=== PATIENT | male | born 1950 | race Caucasian/White ===

== ENCOUNTER → 2017-06-12 | Outpatient (CLI) | payer BC, MEDICARE, OTHER ==
[~2017-06-12] MED LIST: ALLO300T2 PO; ASPI-110 PO; CARV25TA PO; CIAL5TAB PO; FLUT1SPR5 EACH NARE; HYDR25TA5 PO; POTA-163 PO
--- NOTE | 2017-06-12 11:16 | RADRPT ---
EXAM DATE/TIME: 06/12/2017 10:53 [place] COMPARISON: No previous studies available for comparison. INDICATIONS : Evaluate for pneumonia, pneumothorax, or communicable disease. Pre op for hemorrhoidectomy. MEDICAL HISTORY : None. SURGICAL HISTORY : None. ENCOUNTER: Initial ACUITY: 1 day PAIN SCORE: 0/10 LOCATION: chest FINDINGS: The heart is normal. The pulmonary vascular pattern is normal. The lungs are clear. Degenerative miguel ges are noted throughout the thoracic spine. CONCLUSION: No acute cardiopulmonary disease. Rudi Capellan MD on June 12, 2017 at 11:14 Board Certified Radiologist. This report was verified electronically.
[2017-06-12 11:18] LABS: AUTOMATED NEUTROPHIL # 4.9 TH/MM3 (1.8-7.7); BASOPHIL % 0.7 % (0.0-2.0); EOSINOPHIL # 0.2 TH/MM3 (0-0.4); EOSINOPHIL % 2.4 % (0.0-4.0); HEMATOCRIT 43.7 % (39.0-51.0); HEMO FLAGS DIFF FINAL; LYMPH % 20.5 % (9.0-44.0); LYMPHOCYTE # 1.5 TH/MM3 (1.0-4.8); MEAN CELL VOLUME 91.4 FL (80.0-100.0); MEAN CORPUSCULAR HEMOGLOBIN 30.3 PG (27.0-34.0); MEAN CORPUSCULAR HGB CONC 33.1 % (32.0-36.0); MONO % 8.8 % (0.0-8.0); NEUT % 67.6 % (16.0-70.0); PLATELET COUNT 162 TH/MM3 (150-450); RED BLOOD COUNT 4.78 MIL/MM3 (4.50-5.90); RED CELL DISTRIBUTION WIDTH 13.8 % (11.6-17.2); WHITE BLOOD COUNT 7.3 TH/MM3 (4.0-11.0)
[2017-06-12 11:33] LABS: ANION GAP 8 MEQ/L (5-15); AST (GOT) 9 U/L (15-37); BICARBONATE 32.2 MEQ/L (21.0-32.0); BLOOD UREA NITROGEN 14 MG/DL (7-18); CHLORIDE 100 MEQ/L (98-107); GLOMERULAR FILTRATION RATE 123 ML/MIN (>89); GLUCOSE,FASTING 86 MG/DL (74-99); POTASSIUM 3.5 MEQ/L (3.5-5.1); SODIUM (NA) 140 MEQ/L (136-145)
[2017-06-12 11:34] LABS: ALT (GPT) 23 U/L (12-78)
[2017-06-12 11:36] LABS: ALKALINE PHOSPHATASE 81 U/L (45-117); TOTAL BILIRUBIN ADULT 0.8 MG/DL (0.2-1.0)
[2017-06-12 12:11] LABS: BLOOD, URINE TRACE (NEG); GLUCOSE,URINE NEG (NEG); KETONE, URINE NEG (NEG); NITRITE,URINE NEG (NEG); PH, URINE 6.5 (5.0-8.5); URINE COLOR YELLOW (YELLW/STRAW)
[2017-06-12 12:17] LABS: COMMENT (UR) CULT NOT INDICATED; CULTURE IF INDICATED CULT NOT INDICATED
--- NOTE | 2017-06-12 21:04 | EKG ---
Date Performed: 06/12/2017 Time Performed: 10:05:03 PTAGE: 66 years EKG: Sinus rhythm NORMAL ECG NO PREVIOUS TRACING DOCTOR: Jesús Wills Interpretating Date/Time 06/12/2017 21:02:48
== END ==
LOC: CPRE 09:32
PROVIDERS: ATTEND Colon & Rectal Surgery
DX: Z01.810 Encounter for preprocedural cardiovascular examination (principal); Z01.812 Encounter for preprocedural laboratory examination; Z01.818 Encounter for other preprocedural examination; K64.4 Residual hemorrhoidal skin tags
CPT/HCPCS: 36415; 71020; 80053; 81001; 85025; 93005

== ENCOUNTER → 2017-06-19 | Day surgery (SDC) | payer BC, MEDICARE, OTHER ==
[~2017-06-19] VITALS: Ht 177.8 cm; Wt 105.5 kg
[~2017-06-19] MED LIST changes: +ACETAMINOPHEN 1000 MG/100 ML 100 ML IV ONE; +BUPIVACAINE/EPINEPHRINE 0.5% 50 ML VIAL ONE; +CHLORHEXIDINE GLUCONATE 2 % 1 PACK (2 CLOTHS) TOPICAL PRN; +DO NOT ADM ANY ANTICOAGULANT DRUGS PRN; +GLYCOPYRROLATE 0.2 MG/ML VIAL IV ONE; +INSULIN HUMAN REGULAR 1,000 UNITS/10 ML VIAL SQ PRN; +LACTATED RINGER'S 1000 ML IV PRN; +LIDOCAINE 0.5%/EPINEPHrine 1:200,000 SOLN 50 ML VIAL ONE; +LIDOCAINE HCL 1% PF 5 ML AMPULE OTHER ONE; +METOPROLOL TARTRATE 25 MG TAB PO PRN; +MIDAZOLAM HCL 2 MG/2 ML VIAL IV ONE; +NEOSTIGMINE 3 MG/3 ML SYR IV ONE; +ONDANSETRON HCL 4 MG/2 ML VIAL IV PUSH ONE; +ONDANSETRON HCL 4 MG/2 ML VIAL IV PUSH PRN; +PHENYLEPH/NS 1000 MCG/10 ML SYR IV ONE; +POVIDONE IODINE 5% (ANTISEPSIS KIT) 4 APPLICATIONS EACH NARE PRN; +PROPOFOL 200 MG/20 ML AMP IV ONE; +ROCURONIUM INJ 50 MG/5 ML SYRINGE IV PUSH ONE; +SILVER SULFADIAZINE/LIDOCAINE CREAM 60 GM JAR RECTAL ONE; +SODIUM CHLORID 0.9% 500 ML IV PRN; +ePHEDrine/NS 25 MG/5 ML SYR IV ONE; +oxyCODONE/ACETAMINOPHEN 10 MG/325 MG TAB PO PRN
--- NOTE | 2017-06-19 10:48 | PD.HP.UP ---
H&P Update Note The Pre-Admit History and Physical Examination regarding the above named patient was reviewed (including, but not limited to, vital signs, heart, lungs, co-morbid conditions), and upon re-examination it is noted that: the patient's condition has not significantly changed since the last examination. Ghulam Soria MD Jun 19, 2017 10:48
[2017-06-19 13:00] VITALS: BP 120/57; PULSE 63; RESP 18; TEMP 97.8; O2SAT 96
[2017-06-19] MEDS: MORPHINE SULFATE 4 MG/ML INJ IV PRN ×2 (13:35→15:40)
--- NOTE | 2017-06-20 21:45 | MP ---
cc: RD ROCHA MD, MATTHEW T. M.D. DATE OF SURGERY 06/19/17 PREOPERATIVE DIAGNOSIS Symptomatic prolapsing hemorrhoids PROCEDURE Exam under anesthesia with one quadrant hemorrhoidectomy. POSTOPERATIVE DIAGNOSIS Symptomatic prolapsing hemorrhoids SURGEON Dr. Tmi Rocha PROCEDURE IN DETAIL The patient was placed in the supine position. After adequate general anesthesia, he was turned and placed in the prone jackknife position. His buttocks taped apart, supported appropriately, prepped with Betadine solution and draped in the usual sterile fashion. Local anesthesia was obtained by injection of Xylocaine with epinephrine and Marcaine. The anal canal was gently dilated and half-tolentino retractor inserted. Examination revealed rather large prolapsing hemorrhoid and mucosa in the right anterior quadrant. It was very irritated and inflammatory across the surface. The remainder of the anal canal showed very small hemorrhoids without significant prolapse or friability. The rectal vault was pretty unremarkable. First, an elliptical incision was made over the large hemorrhoidal mass in the right anterior quadrant excising the tissue off the internal and external sphincter. The pedicle was narrowed and divided using electrocautery. The mucosal defect was then closed with a running chromic catgut suture as was the anoderm. Several interrupted 3-0 Vicryl sutures were placed for additional hemostasis. At completion, the anal canal lumen was more than adequate. Hemostasis appeared controlled and a small Surgicel dressing placed in the anal canal with a large fluff dressing placed externally. The patient tolerated the procedure quite well and was brought to recovery room in stable condition. MD BARBIE Mendoza/ /1:57 PM /9:30 PM
== END | disposition home or self-care (01) ==
LOC: HSDC 09:25 → EDUNIT# 11:30
PROVIDERS: ATTEND Colon & Rectal Surgery
DX: K64.8 Other hemorrhoids (principal)
CPT/HCPCS: 00902; 46260; 86850; 86900; 86901; 88304; J0131; J2250; J2270; J2370; J2405; J2710; J3010; J7120